=== PATIENT | female | born 1995 | race American Indian/Alaskan Native ===

== ENCOUNTER 2021-07-15 18:37 | Emergency (ER) | payer SELFPAY ==
[2021-07-15 19:50] VITALS: BP 142/92
[2021-07-15] MEDS ORDERED: PROMETHAZINE 25 MG TAB PO ONE (20:49)
[2021-07-15] MEDS ORDERED: ACETAMINOPHEN 500 MG TAB PO ONE (20:49)
[2021-07-15 21:43] LABS: HCG Qualitative,Urine Positive (Negative)
[2021-07-15 22:05] LABS: Bacteria,Urine 3+ /HPF (Negative); Bilirubin,Urine NEG (Negative); Blood,Urine NEG (Negative); Color,Urine Yellow (Yellow); Mucus,Urine 3+ /HPF
[2021-07-15 22:06] LABS: Protein,Urine >500 mg/dL (Negative)
[2021-07-15 22:25] LABS: Basophils % (Auto) 0.3 % (0.0-1.8); Eosinophils # (Auto) 0.2 K/mm3 (0.0-0.4); Eosinophils % (Auto) 2.4 % (0.0-4.3); Hematocrit 36.8 % (30.3-42.9); Hemoglobin 11.5 gm/dl (10.1-14.3); Lymphocytes # (Auto) 2.4 K/mm3 (1.2-5.4); Lymphocytes % (Auto) 34.1 % (13.4-35.0); Mean Corpuscular HGB Conc 31 % (30-34); Mean Corpuscular Volume 70 fl (79-97); Monocytes # (Auto) 0.4 K/mm3 (0.0-0.8); Monocytes % (Auto) 5.1 % (0.0-7.3); Platelet Count 296 K/mm3 (140-440); Red Blood Count 5.25 M/mm3 (3.65-5.03)
[2021-07-15 22:45] LABS: Red Cell Distribution Width 22.8 % (13.2-15.2)
[2021-07-15 22:46] LABS: Alanine Aminotransferase 80 units/L (7-56); Albumin 3.2 g/dL (3.9-5); Blood Urea Nitrogen 8 mg/dL (7-17); Hemolysis Index 0
[2021-07-15 22:54] LABS: BUN/Creatinine Ratio 13
[2021-07-15] MEDS ORDERED: LIDOCAINE-MPF (1%) 10 MG/1 ML VIAL 5 ML INFILTRATI ONE (22:59)
--- NOTE | 2021-07-16 00:02 | Emergency Department Report ---
ED N/V/D HPI - General Chief complaint: Nausea/Vomiting/Diarrhea Stated complaint: /ILL Source: patient Mode of arrival: Ambulatory Limitations: No Limitations - History of Present Illness Initial comments: Patient is a A0 26-year-old -[place] female with a history of morbid obesity and hypertension and who is approximately 16 weeks gestation presents to the ED with complaint of acute onset persistent intractable nausea and vomiting for the last 2 weeks, worse in the last 3 days. Patient states that she has not been eating adequately because she is unable to keep anything down because of persistent nausea and vomiting. Patient states that she was previously prescribed Zofran for nausea and vomiting but that she cannot tolerate this medication as it makes her feel chills and shaking spells and tremors. Patient also complains of mild headache for the last 12 hours. Patient denies dizziness, syncope, chest pain or shortness of breath, fever, chills, dysuria, urinary frequency and urgency, vaginal discharge, vaginal bleeding, abdominal pain, diarrhea, cough, sore throat or vision changes. MD complaint: nausea, vomiting, other (About 16 weeks ) -: Gradual, week(s) (2) Description of Vomiting: food contents, watery Associated Abdominal Pain: No Location: diffuse Radiation: none Severity: moderate Quality: dull Consistency: intermittent Improves with: none Worsens with: eating, vomiting Context: other (Approximately 16 weeks gestation) Associated Symptoms: denies other symptoms, loss of appetite, malaise, nausea/vomiting. denies: myalgias, chest pain, cough, diaphoresis, fever/chills, headaches, rash, dysuria, shortness of breath, syncope, weakness - Related Data Previous Rx's Medication Instructions Recorded Last Taken Type Acetaminophen [Tylenol] 500 mg PO Q6HR PRN #30 tablet 07/16/21 Unknown Rx Famotidine [Pepcid] 20 mg PO BID #60 tablet 07/16/21 Unknown Rx Promethazine [Phenergan] 25 mg PO Q6HR PRN #30 tab 07/16/21 Unknown Rx cephALEXin [Keflex] 500 mg PO Q8HR #30 cap 07/16/21 Unknown Rx Allergies Allergy/AdvReac Type Severity Reaction Status Date / Time No Known Allergies Allergy Verified 07/15/21 19:50 ED Review of Systems ROS: Stated complaint: /ILL Other details as noted in HPI Constitutional: denies: chills, fever Eyes: denies: eye pain, eye discharge, vision change ENT: denies: ear pain, throat pain Respiratory: denies: cough, shortness of breath, wheezing Cardiovascular: denies: chest pain, palpitations Endocrine: no symptoms reported Gastrointestinal: nausea, vomiting. denies: abdominal pain, diarrhea, constipation Genitourinary: denies: urgency, dysuria, frequency, hematuria, discharge, abnormal menses, dyspareunia Musculoskeletal: denies: back pain, joint swelling, arthralgia Skin: denies: rash, lesions Neurological: denies: headache, weakness, paresthesias Psychiatric: denies: anxiety, depression Hematological/Lymphatic: denies: easy bleeding, easy bruising ED Past Medical Hx - Past Medical History Previous Medical History?: Yes Hx Hypertension: Yes - Surgical History Past Surgical History?: No - Medications Home Medications: Home Medications Medication Instructions Recorded Confirmed Last Taken Type Acetaminophen [Tylenol] 500 mg PO Q6HR PRN #30 tablet 07/16/21 Unknown Rx Famotidine [Pepcid] 20 mg PO BID #60 tablet 07/16/21 Unknown Rx Promethazine [Phenergan] 25 mg PO Q6HR PRN #30 tab 07/16/21 Unknown Rx cephALEXin [Keflex] 500 mg PO Q8HR #30 cap 07/16/21 Unknown Rx ED Physical Exam - General Limitations: No Limitations General appearance: alert, in no apparent distress - Head Head exam: Present: atraumatic, normocephalic, normal inspection - Eye Eye exam: Present: normal appearance, PERRL, EOMI Pupils: Present: normal accommodation - ENT ENT exam: Present: normal exam, normal orophraynx, mucous membranes moist, TM's normal bilaterally, normal external ear exam - Neck Neck exam: Present: normal inspection, full ROM. Absent: tenderness - Respiratory Respiratory exam: Present: normal lung sounds bilaterally. Absent: respiratory distress, wheezes, rales, rhonchi, chest wall tenderness, accessory muscle use, decreased breath sounds, prolonged expiratory - Cardiovascular Cardiovascular Exam: Present: regular rate, normal rhythm, normal heart sounds. Absent: systolic murmur, diastolic murmur, rubs, gallop - GI/Abdominal GI/Abdominal exam: Present: soft, normal bowel sounds. Absent: distended, tenderness, guarding, hyperactive bowel sounds, hypoactive bowel sounds, organomegaly - Extremities Exam Extremities exam: Present: normal inspection, full ROM, normal capillary refill. Absent: tenderness - Back Exam Back exam: Present: normal inspection, full ROM. Absent: tenderness, CVA tenderness (R), CVA tenderness (L), muscle spasm, paraspinal tenderness, vertebral tenderness - Neurological Exam Neurological exam: Present: alert, oriented X3, CN II-XII intact, normal gait, reflexes normal - Psychiatric Psychiatric exam: Present: normal affect, normal mood - Skin Skin exam: Present: warm, dry, intact, normal color. Absent: rash ED Course Vital Signs 07/15/21 07/15/21 19:45 20:59 Temperature 98.4 F Pulse Rate 96 H Respiratory 14 16 Rate Blood Pressure 142/92 [Right] O2 Sat by Pulse 98 Oximetry ED Medical Decision Making - Lab Data Result diagrams: 07/15/21 21:49 07/15/21 21:49 - Medical Decision Making This is a A0 26-year-old -[place] female with a history of morbid obesity and hypertension and who is approximately 16 weeks gestation presents to the ED with complaint of acute onset persistent intractable nausea and vomiting for the last 2 weeks, worse in the last 3 days. Patient states that she has not been eating adequately because she is unable to keep anything down because of persistent nausea and vomiting. Patient states that she was previously prescribed Zofran for nausea and vomiting but that she cannot tolerate this medication as it makes her feel chills and shaking spells and tremors. Patient also complains of mild headache for the last 12 hours. In the ED, patient is alert and oriented x3 and is not in any distress. Patient was treated in the ED for nausea and vomiting with antiemetics and antacids, also treated for headache with Tylenol. Lab test results were reviewed and showed significant urinary tract infection, and positive test. On reevaluation, patient felt better, patient was discharged home on medication including antibiotics and antiemetics and was advised to follow-up with her [facility] physician in 7 to 10 days for reevaluation. Patient was advised return to the ED immediately if symptoms get worse. - Differential Diagnosis Hyperemesis gravidarum; UTI; dehydration Critical care attestation.: If time is entered above; I have spent that time in minutes in the direct care of this critically ill patient, excluding procedure time. ED Disposition Clinical Impression: Nausea and vomiting during prior to 22 weeks gestation, Acute urinary tract infection Disposition: HOME / SELF CARE / HOMELESS Is pt being admited?: No Does the pt Need Aspirin: No Condition: Stable Instructions: Nausea and Vomiting, Adult, [id number], Urinary Tract Infection, Adult, [id number], Hyperemesis Gravidarum Additional Instructions: All lab test results were reviewed and are all nonactionable except for urinary tract infection in urinalysis. Therefore take medication with food, drink plenty of fluids and follow-up with your [facility] physician in 7 to 10 days for reevaluation. Return to the ED immediately if symptoms get worse. Prescriptions: Acetaminophen [Tylenol] 500 mg PO Q6HR PRN #30 tablet PRN Reason: Pain , Severe (7-10) cephALEXin [Keflex] 500 mg PO Q8HR #30 cap Famotidine [Pepcid] 20 mg PO BID #60 tablet Promethazine [Phenergan] 25 mg PO Q6HR PRN #30 tab PRN Reason: Nausea Referrals: ALEJANDRO HARRINGTON MD [Staff Physician] - 3-5 Days Time of Disposition: 00:03 Print Language: ISRAELI
== END 2021-07-16 00:23 | disposition home or self-care (01) ==
LOC: ED 18:37
DX: O23.42 Unspecified infection of urinary tract in pregnancy, second trimester (principal); N39.0 Urinary tract infection, site not specified; Z3A.22 22 weeks gestation of pregnancy; I10 Essential (primary) hypertension
CPT/HCPCS: 36415; 80053; 81001; 81025; 84702; 85025; 87086; 96372; 99283; J0696; J3490; Q0169

== ENCOUNTER 2021-11-15 11:05 | Outpatient (CLI) | payer MEDICAID ==
[2021-11-15 13:37] VITALS: BP 133/80
--- NOTE | 2021-11-15 16:19 | Ultrasound Report ---
ULTRASOUND BIOPHYSICAL PROFILE INDICATION: insufficient care. COMPARISON: None available. FINDINGS: breathing movement = 2 Gross body movement = 2 tone = 2 Qualitative amniotic fluid volume = 2 Total biophysical score = 8/8 Amniotic fluid index is 7.5 cm. Presentation is Breech. heart rate is 136 beats per minute. Biparietal diameter 7.2 cm, 31 weeks 0 days Head circumference 30.0 cm, 33 weeks 1 day Abdominal circumference 30.2 cm, 34 weeks 1 day Femur length 6.4 cm, 33 weeks 1 day Estimated weight is 2204 g. There is a grade 0-1 fundal placenta. IMPRESSION: 1. biophysical profile = 8 2. Amniotic fluid index is at the lower limits of normal at 7.5 cm. 3. Estimated weight is 2004 g. lie is currently breech. Signer Name: Darek Umanzor MD Signed: 11/15/2021 4:15 PM Workstation Name: [email or web address]
[2021-11-15 16:36] LABS: Bilirubin,Urine 2+ (Negative); Color,Urine Amber (Yellow)
[2021-11-15 16:37] LABS: Blood,Urine Negative (Negative); Protein,Urine 300 mg/dL mg/dL (Negative)
[2021-11-15 16:38] LABS: Ictotest,Urine Positive (Negative)
[2021-11-15 16:51] LABS: Amorphous Crystals,Urine 3+; Bacteria,Urine 3+ /HPF (Negative); Calcium Oxalate Crystals,Urine 3+
[2021-11-15 17:14] LABS: WBC,Urine < 1.0 /HPF (0.0-6.0)
== END 2021-11-15 18:30 | disposition home or self-care (01) ==
LOC: TRG 11:05 → APU 11:22 → TRG 18:30
PROVIDERS: ATTEND Obstetrics & Gynecology
DX: O98.513 Other viral diseases complicating pregnancy, third trimester (principal); U07.1 COVID-19; Z3A.31 31 weeks gestation of pregnancy
CPT/HCPCS: 76805; 76819; 81001; 87086; U0003